=== PATIENT | female | born 1985 | race American Indian/Alaskan Native ===

== ENCOUNTER 2019-04-06 08:56 | Day surgery (SDC) | payer OTHER ==
[~2019-04-06 08:56] MED LIST: LACTATED RINGERS 1,000 ML IV SCH; NEURONTIN PO NR; VERSED IV NR
[2019-04-06] MEDS ORDERED: ANCEF/STERILE WATER 2 GM/20 ML 2 GM/20 ML SYRINGE IV NR ×2 (09:30→11:00)
[2019-04-06] MEDS ORDERED: ZOFRAN IV PRN (09:43)
[2019-04-06] MEDS ORDERED: SUBLIMAZE IV PRN (09:43)
--- NOTE | 2019-04-06 09:43 | Anesthesia Day of Surgery ---
Anesthesia Day of Surgery - Day of Surgery Patient Examined: Yes Patient H&P Reviewed: Yes Patient is NPO: Yes
--- NOTE | 2019-04-06 09:47 | Anesthesia Consultation ---
Anesthesia Consult and Med Hx Date of service: 04/06/19 - Airway Anesthetic Teeth Evaluation: Chipped, Dentures - Pre-Operative Health Status ASA Pre-Surgery Classification: ASA2 Proposed Anesthetic Plan: General - Pulmonary Hx Smoking: Yes (1/ PPD X 15 YRS) Hx Asthma: Yes (NO MEDS X 2 YRS) Hx Sleep Apnea: No (ALFRED PRE SCREEN NEGATIVE) - Cardiovascular System Hx Hypertension: No - Central Nervous System Hx Neuromuscular Disorder: Yes (Migraines) - Hematic Hx Anemia: Yes (NOT RECENT) - Other Systems Hx Cancer: No
[2019-04-06] MEDS ORDERED: ZEMURON IV ONE (10:00)
[2019-04-06] MEDS ORDERED: MARCAINE 0.5% INFILTRATI ONE ×2 (10:05→11:10)
[2019-04-06] MEDS ORDERED: TORADOL ONE (10:21)
[2019-04-06] MEDS ORDERED: XYLOCAINE MPF 2% ONE (10:21)
[2019-04-06] MEDS ORDERED: ZOFRAN ONE (10:21)
[2019-04-06] MEDS ORDERED: SUBLIMAZE ONE (10:21)
[2019-04-06] MEDS ORDERED: DIPRIVAN 10 MG/ML IV ONE (10:21)
[2019-04-06] MEDS ORDERED: REGLAN ONE (10:21)
[2019-04-06] MEDS ORDERED: DECADRON ONE (10:21)
[2019-04-06] MEDS ORDERED: VERSED ONE (10:21)
[2019-04-06 10:40] LABS: Basophils # (Auto) 0.1 K/mm3 (0.0-0.1); Basophils % (Auto) 0.7 % (0.0-1.8); Eosinophils # (Auto) 0.2 K/mm3 (0.0-0.4); Eosinophils % (Auto) 2.5 % (0.0-4.3); Hemoglobin 12.3 gm/dl (10.1-14.3); Lymphocytes % (Auto) 38.5 % (13.4-35.0); Mean Corpuscular HGB Conc 34 % (30-34); Mean Corpuscular Volume 94 fl (79-97); Monocytes # (Auto) 0.5 K/mm3 (0.0-0.8); Monocytes % (Auto) 6.8 % (0.0-7.3); Platelet Count 258 K/mm3 (140-440); Red Blood Count 3.83 M/mm3 (3.65-5.03); Red Cell Distribution Width 12.6 % (13.2-15.2)
--- NOTE | 2019-04-06 10:56 | Short Stay Summary ---
Short Stay Documentation Date of service: 04/06/19 Narrative H&P: Pt is a 34yo BF LMP presents for permanent sterilization - History Principal diagnosis: Desires permanent sterilization H&P: obtained from office Past Medical History: No medical history Past Surgical History: Social history: no significant social history, single - Allergies and Medications Current Medications: Allergies No Known Allergies Allergy (Verified 04/05/19 10:08) Home Medications Medication Instructions Recorded Confirmed Last Taken Type No Known Home Medications [No 04/05/19 04/05/19 Unknown History Reported Home Medications] Active Medications Celecoxib (Celebrex) 200 mg PO PREOP NR Stop: 04/06/19 23:59 Last Admin: 04/06/19 09:32 Dose: 200 mg Documented by: Fentanyl (Sublimaze) 50 mcg IV Q5MIN PRN PRN Reason: Pain , Severe (7-10) Stop: 04/06/19 20:00 Gabapentin (Neurontin) 300 mg PO PREOP NR Stop: 04/06/19 23:59 Last Admin: 04/06/19 09:33 Dose: 300 mg Documented by: Lactated Ringer's (Lactated Ringers) 1,000 mls @ 100 mls/hr IV DIRECT RADHA Last Admin: 04/06/19 09:33 Dose: 100 mls/hr Documented by: Midazolam HCl (Versed) 2 mg IV PREOP NR Stop: 04/06/19 23:59 Last Admin: 04/06/19 09:33 Dose: 2 mg Documented by: Ondansetron HCl (Zofran) 4 mg IV ONCE PRN PRN Reason: Nausea And Vomiting - Physical exam General appearance: no acute distress Integumentary: no rash HEENT: Atraumatic Lungs: Clear to auscultation Breasts: deferred Heart: Regular rate Gastrointestinal: normal Female Genitourinary: deferred Rectal Exam: deferred Extremities: no ischemia, No edema Neurological: Normal gait, Normal speech - Brief post op/procedure progress note Date of procedure: 04/06/19 Pre-op diagnosis: Desires permanent sterilization Post-op diagnosis: same Procedure: Laproscopic Bilateral Tubal Ligation Anesthesia: GETA Findings: An enlarged uterus, densely adherent to the anterior abdominal wall. Fallopian tubes and ovaries also adherent to the anterior abdominal wall. Normal appendix. Surgeon: DESTINY GUZMAN Estimated blood loss: minimal Pathology: none Condition: stable - Hospital course Hospital course: Unremarkable. - Disposition Condition at discharge: Good Disposition: DC-01 TO HOME OR SELFCARE - Discharge Diagnoses (1) Encounter for sterilization Status: Resolved Short Stay Discharge Plan Activity: no restrictions Diet: regular Wound: open to air, keep clean and dry Follow up with: MARLENA AGUILAR [Other] - 7 Days DESTINY GUZMAN MD [Staff Physician] - 14 Days Prescriptions: HYDROcodone/APAP 5-325 [Lind[place] 5/325] 1 each PO Q6HR PRN #20 tablet PRN Reason: Pain
[2019-04-06] MEDS ORDERED: NACL 0.9% IR ONE (11:10)
[2019-04-06] MEDS ORDERED: ROBINUL ONE (11:50)
[2019-04-06] MEDS ORDERED: BLOXIVERZ ONE (11:50)
[2019-04-06 13:36] VITALS: BP 99/62
--- NOTE | 2019-04-06 16:01 | Operative Report ---
Operative Report Operative Report: PREOPERATIVE DIAGNOSIS: Desires permanent sterilization POSTOPERATIVE DIAGNOSIS: Same OPERATIVE PROCEDURE: Laparoscopic bilateral tubal ligation. SURGEON: Van Jackman MD ANESTHESIA: Gen. endotracheal intubation ANESTHESIOLOGIST: Dr. Mg ESTIMATED BLOOD LOSS: Minimal FINDINGS: An enlarged uterus, densely adherent to the anterior abdominal wall. Fallopian tubes and ovaries also adherent to the anterior abdominal wall. Normal appendix. COMPLICATIONS: None COUNTS: Correct x3. PROCEDURE: After the patient was correctly identified and after general anesthesia was administered, the patient was prepped and draped in usual sterile fashion and placed in dorsal lithotomy position. First, the bladder was emptied using a straight catheter. Next, a speculum was placed in the vaginal vault and the anterior lip of the cervix was grasped using a single-tooth tenaculum. The uterine manipulator was then placed and the tenaculum and speculum were removed. Attention was then turned to the abdomen where first a periumbilical incision was made using a skin knife, and the Optiview trocar was inserted under direct visualization. After an adequate amount of abdominal insufflation, visualization of the pelvic organs found the uterus to be enlarged and densely adherent to the anterior abdominal wall. The fallopian tubes and ovaries also adherent to the anterior abdominal wall. Next, the left fallopian tube was grasped using the Kleppingers, and after identifying the fimbriated end of the left tube, this tube was cauterized in 3 continuous [address] along the proximal portion of the left tube. The same procedure was performed on the right fallopian tube after first identifying the fimbriated end of the right tube. This tube was also cauterized in 3 continuous places along the proximal portion of the right tube. At this point, the procedure was then considered complete. All instruments were removed from the abdomen. The abdomen was deflated and the periumbilical incision was closed using 0 Vicryl suture in a [id number] configuration on the fascia, followed by 4-0 Monocryl suture in sub-cuticular fashion on the skin. The incision was also infiltrated using 0.5% Marcaine solution. The uterine manipulator was removed. The patient tolerated the procedure well and was transferred to recovery room stable condition.
== END 2019-04-06 08:57 | disposition home or self-care (01) ==
LOC: OR 08:56
PROVIDERS: ATTEND Obstetrics & Gynecology
DX: Z30.2 Encounter for sterilization (principal); H40.9 Unspecified glaucoma; G43.909 Migraine, unspecified, not intractable, without status migrainosus; J45.909 Unspecified asthma, uncomplicated; F17.210 Nicotine dependence, cigarettes, uncomplicated; Z79.899 Other long term (current) drug therapy; Z98.891 History of uterine scar from previous surgery; Z98.890 Other specified postprocedural states; Z86.2 Personal history of diseases of the blood and blood-forming organs and certain disorders involving the immune mechanism
CPT/HCPCS: 36415; 58670; 81025; 85025; J1100; J1885; J2250; J2405; J2704; J2710; J2765; J3010; J7120